=== PATIENT | female | born 2000 ===

== ENCOUNTER 2021-12-28 14:52 | Emergency (ER) | payer MEDICAID, SELFPAY ==
[2021-12-28 15:01] VITALS: BP 104/64; PULSE 63; RESP 16; TEMP 36.1; O2SAT 100; BMI 30.3
--- NOTE | 2021-12-28 15:18 | CRLHL7_ITS ---
For Patients: As a result of the Cures Act, medical imaging exams and procedure reports are released immediately into your electronic medical record. You may view this report before your referring provider. If you have questions, please contact your health care provider. Indication: Fall off skateboard Comparison: None available. Technique: AP and lateral views left tibia and fibula were obtained. Findings: There is no displaced fracture or dislocation. The joint spaces are grossly preserved. The soft tissues are unremarkable. Impression: No acute osseus abnormality. Dictated by Mynor Amaya MD @ 12/28/2021 4:03:20 PM (Electronically Signed)
--- NOTE | 2021-12-28 15:31 | ED_ITS ---
HPI - General Adult General Time Seen by Provider: 15:32 Date Seen: 12/28/21 Chief complaint: Extremity Pain/Injury, Lower Stated complaint: Leg Injury Time Seen by Provider: 12/28/21 15:14 Source: patient History of Present Illness HPI narrative: 21-year-old female presents with left leg pain after falling off her skateboard. About 11:00 a.m. this morning she fell off her skateboard. She reports she fell backwards. She managed to injure her left leg. Her pain is in about the mid anterior tibia. She has no previous left leg problems. She does note that for a few weeks she has been bothered by her right ankle. She does not think that was significantly injured on this fall. She denies any other injury. She did not hit her head, heard her arms, back, chest or abdomen with the fall. She reports no hip pain or thigh pain. She denies any other illness or injury. Related Data Home Medications Medication Instructions Recorded Confirmed No Known Home Medications 12/28/21 12/28/21 Allergies Allergy/AdvReac Type Severity Reaction Status Date / Time cashew nut Allergy Verified 12/28/21 15:05 pistachio nut Allergy Verified 12/28/21 15:05 Review of Systems Narrative: She has been healthy recently without other symptoms of illness and no other injury except her subacute right ankle problem. She reports she is not seeking evaluation for that today. [facility] Social History Smoking Status: Never smoker Do you use any of these nicotine containing products: None Second hand tobacco smoke exposure: No How often do you have a drink containing alcohol: monthly or less How many standard drinks containing alcohol do you have on a typical day: 1 or 2 How often do you have six or more drinks on one occasion: Never AUDIT-C Alcohol total score: 1 Non-prescribed substance use: denies use Exam Narrative: Exam Narrative: She is alert and appears in no distress. Gives her own history. Examination of her left lower extremity from the knee to the toes shows no obvious external signs of trauma. Palpation over the knee is nontender. There is no joint effusion. She can flex and extend her knee normally without discomfort. Palpation over her calf posteriorly laterally and medially are all nontender. Post palpation over her mid tibia is painful. This area does not have any obvious palpable or visual signs of trauma. Palpation over the ankle is nontender. Medial and lateral malleoli, Achilles, calcaneus, 5th metatarsal and midfoot are all nontender. Toes are normal. Intact pulses and sensation in her foot. Range of motion in her ankle without discomfort. Const: Vital Signs, click to edit/add: Vital Signs - 24 hr 12/28/21 15:01 Temperature 97.0 F L Pulse Rate [Right Pulse Oximeter] 63 Respiratory Rate 16 Blood Pressure [Ri ght Upper Arm] 104/64 Pulse Oximetry 100 Oxygen Delivery Me thod Room Air Documenting provider has reviewed patient's vital signs: yes Course Vital Signs Vital signs: Initial Vital Signs Temperature 97.0 F L 12/28/21 15:01 Temperature Source Temporal Artery Scan 12/28/21 15:01 Pulse Rate 63 12/28/21 15:01 Respiratory Rate 16 12/28/21 15:01 Blood Pressure 104/64 12/28/21 15:01 Blood Pressure Mean 77 12/28/21 15:01 Blood Pressure Position Sitting 12/28/21 15:01 Pulse Oximetry 100 12/28/21 15:01 Oxygen Delivery Method 12/28/21 15:01 Vital Signs Temperature 97.0 F L 12/28/21 15:01 Pulse Rate 63 12/28/21 15:01 Respiratory Rate 16 12/28/21 15:01 Blood Pressure 104/64 12/28/21 15:01 Pulse Oximetry 100 12/28/21 15:01 Oxygen Delivery Method 12/28/21 15:01 Temperature 97.0 F L 12/28/21 15:01 Pulse Rate 63 12/28/21 15:01 Respiratory Rate 16 12/28/21 15:01 Blood Pressure 104/64 12/28/21 15:01 Pulse Oximetry 100 12/28/21 15:01 Oxygen Delivery Method 12/28/21 15:01 Medical Decision Making Imaging Data Tib-fib: My impression: No bony abnormality Discharge Plan Discharge Clinical Impression: Leg injury Patient Disposition: Home, Self-Care Additional Instructions: Weight-bearing as tolerated. Ice, acetaminophen or ibuprofen as needed for pain. See your doctor in 1-2 weeks if not better. Activity Level: Activity as Tolerated Prescriptions: No Action No Known Home Medications Follow Up/Referrals: Provider,Not a Local [Primary Care Provider] - Stand Alone Forms: Zang Info Instructions
== END 2021-12-28 16:16 | disposition home or self-care (01) ==
PROVIDERS: Emergency Provider Family Medicine
DX: M79.605 Pain in left leg (principal)
CPT/HCPCS: 73590; 99283